=== PATIENT | male | born 1995 | race Caucasian/White ===

== ENCOUNTER 2016-10-13 16:00 | Emergency (ER) | payer OTHER ==
[2016-10-13 16:25] VITALS: RESP 18; TEMP 98
[2016-10-13] MEDS ORDERED: BACITRACIN 0.9 GM PACKET OINT TOPICAL ONE (17:09)
--- NOTE | 2016-10-14 03:13 | PDOC ---
Head Injury HPI - General Chief Complaint: Head Problem / Injury Stated Complaint: KICKED IN HEAD BY HORSE Date Seen by Provider: 10/13/16 Time Seen by Provider: 16:10 Source: POSITIVE: Patient Exam Limitations: POSITIVE: No limitations Nurse's Notes Reviewed & Considered: Yes - History of Present Illness Initial Comments: The patient is a 21-year-old male. He was riding a horse and he states he fell off a horse and the horse then kicked him in the right forehead. Patient had no loss of consciousness. He states that he felt dizzy afterwards and has since developed a headache. He has felt nauseated but has not had any vomiting. Incident occurred shortly prior to arrival to the emergency room. He is ambulatory to the emergency room. He denies any associated neck pain. He denies any other injuries. He does have a contusion and an abrasion to the right forehead where he was kicked. Have you received a tetanus shot in the past 10 years?: Yes Body Location Affected: REPORTS: Head Timing: REPORTS: Abrupt Duration: 1 hour Severity: Moderate Context: REPORTS: Direct Blow Location at Time of Onset: REPORTS: Other ([place]right) Quality: REPORTS: "Pain" (Localizes pain to the right side of the forehead and some mild circumferential headache) Associated Symptoms: REPORTS: Recalls Injury, Recalls Coming to ER, Blow to Head. DENIES: Dazed, Seizure, Trouble Breathing, Memory Impairment, Lost Consciousness, Other Duration of Altered Mental Status (in minutes):: 0 Location of Injuries / Pain: REPORTS: Right, Head Any Prior Injuries Related to Current Complaint?: No - Patient Home Medications Home Medications: Home Medications NK [No Home Medications Reported] 10/13/16 - Patient Allergies Allergies/Adverse Reactions: Allergies Allergy/AdvReac Type Severity Reaction Status Date / Time No Known Allergies Allergy Unverified 10/13/16 16:06 Past Medical History - heen HEENT History: Denies History Cardiovascular History: Denies History Respiratory History: Denies History Gastrointestinal History: Denies History Genitourinary History: Denies History Endocrine History: Denies History Musculoskeletal History: Denies History Prosthesis or Implant: No Neurological History: Denies History Blood Disorders: Denies History Psychiatric History: Denies History History of Sexually Transmitted Diseases: No Male Reproductive History: Denies History Cancer History: Denies History In Past Year Been Physically Harmed or Verbally Threatened: No History of MDRO: No History of Other Communicable Diseases: No Tobacco Use: Current Every Day Smoker Alcohol Use: Occasionally Substance Use Type: None Previous Surgical History: No Past Medical History Reviewed: Reviewed - No Changes ROS - Limitations ROS Limitations: No Limitations Constitution: REPORTS: Denies Symptoms Cardiovascular: REPORTS: Denies Cardiac Symptoms Respiratory: REPORTS: Denies Resp Symptoms Neurological: REPORTS: Headache Gastrointestinal: REPORTS: Nausea Endocrine: REPORTS: Denies Symptoms Musculoskeletal: REPORTS: Denies MS Symptoms Genitourinary: REPORTS: Denies Symptoms Eyes: REPORTS: Denies Symptoms ENT: REPORTS: Denies Symptoms Skin: REPORTS: Other (Contusion and abrasion right forehead) Lympathic: REPORTS: Denies Lympathic Symptoms Immunologic: POSITIVE: Denies Symptoms Psychiatric: POSITIVE: Denies Psych Symptoms Head Injury Physical Exam - General Appearance General Appearance: POSITIVE: Alert, Cooperative, No Acute Distress. NEGATIVE: No Evidence of Trauma (Contusion and abrasion right forehead) - HEENT Head / Face: POSITIVE: No Facial Swelling, Ecchymosis (Right forehead). NEGATIVE: Atraumatic, Normal Inspection (Contusion and abrasion right forehead) Eyes: POSITIVE: Inspection Normal, PERRL, EOM's Intact, Eyelids Uninjured, Conjunctivae Uninjured, No Nystagmus, No Globe Trauma, Sclera Normal, Normal Corneal Inspection, Normal Fundoscopic Exam, Ant. Chamber Nml Inspect., Posterior Segments Normal, No Papilledema Ears: POSITIVE: Ears Normal Inspection, TM Normal Inspection, Auricle Normal, External Canal Normal Nose: POSITIVE: Inspection Normal, No Apparent Trauma, Nares Normal, No CSF Leak Oropharynx: POSITIVE: External Inspection Nml, Pharynx Inspect. Nml, Airway Intact, Voice Normal, Moist Mucous Membranes, No Oral Injury, Lips Normal, Gums Normal, No Drooling, No Thrush, Normal Gag Reflex Dental: POSITIVE: No Dental Injury - Pupil Size Pupil Size: 4 mm: Bilateral (PERRLA) - Neuro / Psych Neuro / Psych: POSITIVE: Alert, Oriented x 3, Cooperative, Interactive, Mood Appropiate, Affect Appropriate Cranial Nerves: POSITIVE: Normal As Tested, No Evidence of Acute CVA Cerebellar: POSITIVE: Normal As Tested Sensorimotor: POSITIVE: No Motor Deficits, No Sensory Deficits, Reflexes Normal - Respiratory / CVS Respiratory / CVS: POSITIVE: Chest Non Tender, No Ecchymosis, Breath Sounds Normal, No Respiratory Distress, Heart Sounds Normal, Regular Rate/Rhythm Peripheral Pulses: Radial (R): 2+, Radial (L): 2+ - Abdomen Abdomen: Soft: (All Quadrants), Normal Bowel Sounds: (All Quadrants), Denies Tenderness: (All Quadrants), No Splenomegaly: (All Quadrants), No Hepatomegaly: (All Quadrants), No Guarding: (All Quadrants), No Rebound: (All Quadrants), No Palpable Pulse: (All Quadrants), No Palpabale Mass: (All Quadrants), No Distention: (All Quadrants), No Rigidity: (All Quadrants) - Neck Neck: POSITIVE: Normal Inspection, Non-Tender, Painless ROM, Thyroid Normal, Nexus Criteria Negative. NEGATIVE: Muscle Spasm, Decreased ROM, Lymphadenopathy , Thyromegaly, Pain w/ Axial Compression, Subcutaneous Emphysema, Midline Tenderness, Distracting Injury, Altered Mental Status, Recent ETOH, Focal Neuro Defit, See Diagram, Other - Back Back: POSITIVE: Normal Inspection, No CVA Tenderness, Non Tender, Painless ROM, No Vertebral Tenderness - Skin Skin: POSITIVE: Other (Contusion and abrasion right forehead) - Extremities Extremity Assessment: Non-Tender: (ALL), Normal ROM: (ALL), No Edema: (ALL), Normal Inspection: (ALL), No Swelling: (ALL) Joint Exam: POSITIVE: Joints Normal, Normal ROM, Normal Gait, Normal Weight Bearing Images - Head Head: 1 - Contusion and abrasion Head Injury Progress - Results Reviewed by me Xrays/CTs/US Reviewed by me: Yes Discussed with Radiologist: Yes Radiology Findings: CT head without contrast normal - Patient's Progress Pain Medication Addressed: POSITIVE: Yes (Recommended Advil or Tylenol) School/Work Release Addressed: POSITIVE: Yes (No activities involving horseback riding or any other activities where he is likely to re-sustain head trauma for at least 72 hours) Re-examine Time: 17:05 Re-Examine Comment: Abrasion cleansed with normal saline and bacitracin dressing placed. Status: POSITIVE: Improved, Re-Examined - Consult Counseled: POSITIVE: Patient, RE: Radiology Results, RE: DX, RE: Need for F/U Head Injury Impression - Clinical Impression Clinical Impression: POSITIVE: Concussion w/o LOC, Contusion, Other (Forehead abrasion) - Continued Care RX Given: No Disposition: POSITIVE: Home Condition: POSITIVE: Improved Patient Care Time - Estimated PCT Patient Care Time (In Minutes): 30 Vital Signs - VS Reviewed Vital Signs Reviewed: Yes Discharge Clinical Impression: Head trauma, Abrasion head Discharge Disposition: Discharged to Home Condition: Fair Patient Instructions Given at Discharge: Concussion (ED), Abrasion (ED) Additional Instructions: The CT scan of your head is normal. There is no evidence of skull fractures or intracranial bleeding. You may have had a mild concussion, so I am giving your discharge instructions identifying things to look for. I would avoid horseback riding or any other activities were your likely to sustain an additional head trauma for at least 72 hours. Wash the forehead abrasion well with soap and water and lubricated with bacitracin daily. Return here anytime if condition worsens in any way whatsoever. Follow-up with your primary care provider. Follow Up With: NONE,NONE [Primary Care Provider] - (Instructions as above. Follow-up with your primary care provider. Return here anytime if condition worsens in any way.)
== END 2016-10-13 17:15 | disposition home or self-care (01) ==
LOC: ER 16:00
DX: S00.83XA Contusion of other part of head, initial encounter (principal); S00.81XA Abrasion of other part of head, initial encounter; R42 Dizziness and giddiness; R11.0 Nausea; R51 Headache; V80.010A Animal-rider injured by fall from or being thrown from horse in noncollision accident, initial encounter
CPT/HCPCS: 70450; 99282